=== PATIENT | female | born 2000 | race Asian ===

== ENCOUNTER 2020-11-26 23:25 | Emergency (ER) | payer SELFPAY ==
[2020-11-26 23:36] VITALS: BP 126/81; PULSE 80; RESP 18; TEMP 36.8; O2SAT 97; BMI 17.5
[2020-11-26] MEDS: LIDO 1%/SOD BICARB 8.4% (10ML) 10 ML SYRINGE INJ (23:56)
[2020-11-26] MEDS: DOXYCYCLINE HYCLATE 100 MG TABLET PO (23:56)
[2020-11-27 00:23] VITALS: BP 125/75; PULSE 75; RESP 14; O2SAT 99
--- NOTE | 2020-11-27 06:49 | ED_ITS ---
HPI - Skin/Abscess/Foreign Bdy General Chief complaint: Skin/Abscess/Foreign Body Stated complaint: Possible bug bite on head Time Seen by Provider: 11/26/20 23:40 Source: patient Mode of arrival: Ambulatory Limitations: no limitations History of Present Illness HPI narrative: 20-year-old female nonsmoker with noncontributory medical history presents with a chief complaint of a painful infection or bite on her ri ght forehead. She states it has been there for a few days and she tried draining pus from it and then it got worse. She denies any systemic findings such as fever, chills nor nausea or vomiting. She denies any blurred vision and is otherwise well and free of complaint MD complaint: abscess/boil Onset (ago): day(s) Tetanus up to date: yes Location: head Severity: moderate Quality: burning, stabbing and aching Pain Consistency: constant Relieving factors: none Exacerbating factors: none Related Data Previous Rx's Medication Instructions Recorded doxycycline hyclate 100 mg PO BID #20 tab 11/26/20 drospirenone-ethinyl estradiol 1 tab PO DAILY #28 tab 11/26/20 [INDERJIT (28)] Allergies Allergy/AdvReac Type Severity Reaction Status Date / Time aspirin Allergy Verified 11/26/20 23:36 Review of Systems Constitutional Constitutional: Denies chills, Denies fatigue, Denies fever(s), Denies frequent falls, Denies lethargy and Denies weakness Eyes Eyes: Denies change in vision, Denies eye discharge, Denies irritation and Denies loss of vision ENT Ears, Nose, Mouth, and Throat: Denies change in voice, Denies dizziness, Denies neck pain, Denies sore throat and Denies throat swelling Cardiovascular Cardiovascular: Denies chest pain, Denies irregular heart rhythm, Denies lightheadedness, Denies palpitations, Denies dyspnea, Denies dyspnea on exertion and Denies orthopnea Respiratory Respiratory: Denies cough, Denies dyspnea, Denies dyspnea on exertion and Denies wheezing Gastrointestinal Gastrointestinal: Denies abdominal pain, Denies change in bowel habits, Denies diarrhea, Denies nausea and Denies vomiting Musculoskeletal Musculoskeletal: Denies neck pain and Denies numbness Integumentary/Breasts Skin/Breast: Denies pruritus, Reports erythema, Denies rash, Reports skin pain, Reports skin swelling and Denies wounds Neurologic Neurologic: Denies behavioral changes, Denies confusion, Denies dizziness, Denies frequent falls, Denies loss of vision, Denies numbness and Denies weakness Psychiatric Psychiatric: Denies anxiety, Denies behavioral changes, Denies confusion, Denies depression, Denies homicidal ideation and Denies suicidal ideation Endocrine Endocrine: Denies fatigue, Denies flushing and Denies palpitations Hematologic/Lymphatic Hematologic/Lymphatic: Denies easy bruising Allergic/Immunologic Allergic/Immunologic: Denies urticaria, Denies throat swelling and Denies wheezing Patient History Social History Smoking Status: Never smoker Smoking Status: Never smoker Substance Use Type: does not use Exam Narrative Exam Narrative: GEN: AOx3 and in mild distress EYES: Pupils are equal, round, and reactive to light and accommodation. Extraoccular muscles are intact bilaterally. There is no subconjunctival hemorrhage or exudate. CHEST: Lungs are clear to auscultation bilaterally and free of wheezes, rales, or rhonchi. Heart rate is regular rhythm, there are no murmurs, clicks, rubs, or gallops. There is no chest wall tenderness. ABD: Abdomen is soft and nontender. There is no guarding or rebound. Bowel sounds are normal in all 4 quadrants. There is no mass or organomegaly. EXT: Full painless ROM of all extremities with no loss of sensation or strength. SKIN: 2 x 2 cm fluctuant mass right forehead just above the hairline consistent with abscess. Small landis exposed with minimal surrounding erythema, otherwise Warm, pink, and dry. No erythema or rash Initial Vital Signs Initial Vital Signs: Vital Signs Temperature 98.3 F 11/26/20 23:36 Pulse Rate 80 11/26/20 23:36 Respiratory Rate 18 11/26/20 23:36 Blood Pressure 126/81 11/26/20 23:36 Pulse Oximetry 97 11/26/20 23:36 Procedures Abscess I/D I&D #1: Site: scalp Side (if applicable): right Local Anesthetic: lidocaine 1% and with bicarb Amount of anesthesia used (mL): 4 Technique: incised with #11 blade Amount of fluid expressed (mL): 5 Irrigation: No Packing used?: none Complications: pain Course Orders Ordered: Discontinued Medications Doxycycline Hyclate (Doxycycline Hyclate 100 Mg Tablet) 100 mg PO NOW ONE Stop: 11/26/20 23:50 Last Admin: 11/26/20 23:56 Dose: 100 mg Documented by: AARON Lidocaine/Sodium Bicarbonate (Lido 1%/Sod Bicarb 8.4% (10ml) 10 Ml Syringe) 10 ml INJ NOW ONE Stop: 11/26/20 23:50 Last Admin: 11/26/20 23:56 Dose: 10 ml Documented by: AARON Vital Signs Vital signs: Vital Signs - 8 hr 11/26/20 23:36 11/27/20 00:23 Temperature 98.3 F Pulse Rate 80 75 Respiratory Rate 18 14 Blood Pressure 126/81 125/75 Pulse Oximetry 97 99 Discharge Plan Departure Patient Disposition: Home Clinical Impression: Abscess of skin or subcutaneous tissue Qualifiers: Site of cutaneous abscess: face Qualified Code(s): L02.01 - Cutaneous abscess of face Instructions: DI for Skin Abscess Activity Restrictions/Additional Instructions: *You have been diagnosed with [ Superficial cutaneous abscess] *What to do: *Please continue to take your regular medications as directed. [ ] New medication prescriptions sent to your pharmacy: [ ] [x] New medication written as a paper prescription [ ] No new medications given *Please follow up with your primary care provider in 2-3 days, call for an appointment. Let them know you were seen in the Emergency Department and that we ask that you be seen in follow up. We will electronically transmit a record of today's note if your PCP is in our system *If you do not have a primary care provider please contact the [facility] Resource line at [phone]. They will ask some questions about your medical history and help get you set up with a doctor in the community. *Return to Emergency Department if you should have any new, worsening or concerning symptoms, such as [fever greater than 101 F, shaking chills, worsening pain, persistent vomiting or other bothersome symptoms] Prescriptions: New drospirenone-ethinyl estradiol [INDERJIT (28)] 3-0.02 mg tablet 1 tab PO DAILY Qty: 28 RF: 0 doxycycline hyclate 100 mg tablet 100 mg PO BID Qty: 20 RF: 0
== END 2020-11-27 00:23 | disposition home or self-care (01) ==
PROVIDERS: Emergency Provider Emergency Medicine
DX: L02.01 Cutaneous abscess of face (principal)
CPT/HCPCS: 10060; 99283